=== PATIENT | male | born 1970 | race African-American/Black ===

== ENCOUNTER 2016-11-20 06:43 | Emergency (ER) | payer OTHER ==
[2016-11-20 07:17] VITALS: BMI 31.6
[2016-11-20] MEDS ORDERED: KETOROLAC TROMETHAMINE 60 MG/2 ML VIAL IM ONE (07:57)
[2016-11-20] MEDS ORDERED: KETOROLAC TROMETHAMINE 60 MG/2 ML VIAL ONE (08:00)
--- NOTE | 2016-11-20 08:44 | PDOC ---
History of Present Illness - General Chief Complaint: Pain Stated Complaint: INJURY,RT FOOT Time Seen by Provider: 11/20/16 07:46 History Source: Patient Exam Limitations: No Limitations - History of Present Illness Initial Comments: 11/20/16 08:46 46-year-old male presents the ED with complaints of right heel and right mid foot pain after playing basketball 2 days ago. Patient states the next day pain increased which he describes an aching sensation worsened with ambulation. Patient states took Motrin with minimal affect and decided come to the ER. Patient denies any sensory changes to the foot, swelling, or skin discoloration. Patient denies history of gout, previous injury to the affected area, or arthritis. Timing/Duration: constant Severity: moderate Associated Symptoms: reports: denies symptoms Past History - Past Medical History Allergies/Adverse Reactions: Allergies Allergy/AdvReac Type Severity Reaction Status Date / Time prochlorperazine edisylate Allergy MUSCLE Verified 11/20/16 07:10 [From Compazine] SPASMS prochlorperazine maleate Allergy MUSCLE Verified 11/20/16 07:10 [From Compazine] SPASMS Home Medications: Ambulatory Orders Ibuprofen [Motrin -] 600 mg PO DAILY PRN 11/20/16 Anemia: No Asthma: No Cancer: No Cardiac Disorders: No CVA: No COPD: No CHF: No Dementia: No Diabetes: No GI Disorders: No Disorders: No HTN: No Hypercholesterolemia: No Liver Disease: No Seizures: No Thyroid Disease: No Other medical history: DENIES. - Surgical History Abdominal Surgery: Yes (HERNIA REPAIR) Appendectomy: Yes - Immunization History TDAP Vaccination: No Immunization Up to Date: Yes - Psycho/Social/Smoking Cessation Hx Anxiety: No Suicidal Ideation: No Smoking History: Never smoked Have you smoked in the past 12 months: No Cigars Per Day: 0 Hx Alcohol Use: Yes (SOCIALLY) Drug/Substance Use Hx: No Substance Use Type: None Hx Substance Use Treatment: No Patient Lives Alone: No Lives with/in: spouse/SO Review of Systems - Review of Systems Able to Perform ROS?: Yes Constitutional: No: Symptoms Reported Musculoskeletal: Yes: Other (right midfoot pain over the sole). No: Joint Pain , Muscle Pain Integumentary: No: Symptoms Reported Neurological: No: Symptoms reported *Physical Exam - Vital Signs Last Vital Signs Temp Pulse Resp BP Pulse Ox 98.2 F 77 16 112/67 95 11/20/16 07:10 11/20/16 07:10 11/20/16 07:10 11/20/16 07:10 11/20/16 07:10 - Physical Exam General Appearance: Yes: Nourished, Appropriately Dressed. No: Apparent Distress Vascular Pulses: Dorsalis-Pedis (R): 2+ Extremity: positive: Normal Capillary Refill, Normal Inspection, Normal Range of Motion, Tender (over the right proximal aspect of long plantar ligament and plantar fascia). negative: Pedal Edema, Swelling, Erythema Integumentary: positive: Normal Color, Warm, Moist Neurologic: positive: Motor Strength 01/30 ED Treatment Course - RADIOLOGY Radiology Studies Ordered: Category Date Time Status FOOT-RIGHT [RAD] Stat Radiology 11/20/16 07:57 Completed - Medications Given in the ED: ED Medications Discontinued Medications Generic Name Dose Route Start Last Admin Trade Name Freq PRN Reason Stop Dose Admin Ketorolac Tromethamine 60 mg 11/20/16 07:57 11/20/16 08:08 Toradol Injection - IM 11/20/16 07:58 60 mg ONCE ONE Administration Medical Decision Making - Medical Decision Making 11/20/16 08:19 Patient with right foot pain likely due to a tendon versus plantar fasciitis versus osteophyte. Patient ordered for x-ray and Toradol IM. 11/20/16 08:59 X-ray negative for acute findings. Patient given crutches and placed back in Major wrap with instructions and recommended follow-up if no improvement over the next 5 days. *DC/Admit/Observation/Transfer Diagnosis at time of Disposition: Foot pain, right - Discharge Dispostion Disposition: HOME Condition at time of disposition: Good - Referrals Referrals: Jeanmarie Ann MD [Primary Care Provider] - Brenton Hernandez MD [Staff Physician] - - Patient Instructions Printed Discharge Instructions: DI for Foot Pain, DI for Plantar Fasciitis Additional Instructions: The x-ray did not show evidence of a heel spur. This may be likely due to a tendon strain vs plantar fasciitis and I recommend using an Major wrap for support during the day and remove at night, take NSAID such as Motrin 600 mg every 8 hours and apply ice to the affected area. I've also given your referral to orthopedist if pain continues greater than 5 days please follow-up with him as this may require further imaging and management. I also recommend wearing proper fitting shoes that provide midfoot support.
[2016-11-20 09:01] VITALS: BP 115/71; PULSE 81; TEMP 98.1
== END 2016-11-20 09:01 | disposition home or self-care (01) ==
LOC: JER 06:43
PROC: 3E0233Z Introduction of Anti-inflammatory into Muscle, Percutaneous Approach (ICD-10-PCS; principal; 2016-11-20)
DX: M25.571 Pain in right ankle and joints of right foot (principal); X50.0XXA Overexertion from strenuous movement or load, initial encounter; X50.9XXA Other and unspecified overexertion or strenuous movements or postures, initial encounter; Y93.67 Activity, basketball; Y92.310 Basketball court as the place of occurrence of the external cause; Y99.8 Other external cause status
CPT/HCPCS: 73630-TC-RT; 99282-25

== ENCOUNTER 2021-03-27 19:31 | Emergency (ER) | payer OTHER ==
[2021-03-27 19:45] VITALS: BP 135/92; PULSE 70; TEMP 100.2; BMI 33.0
[2021-03-27] MEDS ORDERED: KETOROLAC TROMETHAMINE 60 MG/2 ML VIAL IM ONE (20:29)
[2021-03-27] MEDS ORDERED: KETOROLAC TROMETHAMINE 60 MG/2 ML VIAL ONE (20:30)
== END 2021-03-27 21:33 | disposition home or self-care (01) ==
LOC: FER 19:31
PROC: 3E0233Z Introduction of Anti-inflammatory into Muscle, Percutaneous Approach (ICD-10-PCS; principal; 2021-03-27)
DX: M10.011 Idiopathic gout, right shoulder (principal)
CPT/HCPCS: 99283-25

== ENCOUNTER 2021-08-30 06:30 | Emergency (ER) | payer OTHER ==
[2021-08-30 06:41] VITALS: BMI 33.1
[2021-08-30 07:08] VITALS: BP 90/71; PULSE 86; TEMP 99.1
[2021-08-30] MEDS ORDERED: KETOROLAC TROMETHAMINE 30 MG/1 ML VIAL IM ONE (07:32)
[2021-08-30] MEDS ORDERED: KETOROLAC TROMETHAMINE 30 MG/1 ML VIAL ONE (07:35)
== END 2021-08-30 08:16 | disposition home or self-care (01) ==
LOC: FER 06:30
PROC: 3E023GC Introduction of Other Therapeutic Substance into Muscle, Percutaneous Approach (ICD-10-PCS; principal; 2021-08-30)
DX: M25.511 Pain in right shoulder (principal); M79.672 Pain in left foot
CPT/HCPCS: 73630-TC-LT; 99284-25

== ENCOUNTER 2022-10-27 10:58 | Emergency (ER) | payer OTHER ==
[2022-10-27 11:09] VITALS: BP 136/80; PULSE 87; RESP 18; TEMP 98.7; BMI 31.6
[2022-10-27] MEDS ORDERED: IBUPROFEN 600 MG TABLET (FP) PO ONE ×2 (11:37→11:49)
== END 2022-10-27 12:10 | disposition home or self-care (01) ==
LOC: FER 10:58
DX: J32.9 Chronic sinusitis, unspecified (principal); L98.8 Other specified disorders of the skin and subcutaneous tissue
CPT/HCPCS: 0241U-QW; 99283-25

== ENCOUNTER 2022-11-16 05:32 | Emergency (ER) | payer OTHER ==
[2022-11-16 05:41] VITALS: BP 110/79; PULSE 77; RESP 18; TEMP 98.2; BMI 31.6
[2022-11-16] MEDS ORDERED: IBUPROFEN 600 MG TABLET (FP) PO ONE ×2 (06:17→06:21)
[2022-11-16] MEDS ORDERED: diazePAM 5 MG TABLET PO ONE (06:17)
[2022-11-16] MEDS ORDERED: diazePAM 5 MG TABLET ONE (06:22)
== END 2022-11-16 06:28 | disposition home or self-care (01) ==
LOC: FER 05:32
DX: S16.1XXA Strain of muscle, fascia and tendon at neck level, initial encounter (principal); M62.838 Other muscle spasm; Y99.8 Other external cause status
CPT/HCPCS: 99283-25